=== PATIENT | female | born 1990 | race African-American/Black ===

== ENCOUNTER 2017-11-26 14:45 | Emergency (ER) | payer SELFPAY | END 2017-11-26 15:55 | disposition home or self-care (01) | LOC: ER 14:45 | DX: K02.9 Dental caries, unspecified (principal); R11.0 Nausea | CPT/HCPCS: 99283 ==

== ENCOUNTER 2018-10-05 11:46 | Emergency (ER) | payer SELFPAY ==
[~2018-10-05] VITALS: Ht 162.6 cm; Wt 96.6 kg
[~2018-10-05 11:46] MED LIST: ACET325T9 PO; AMOX875T PO; PROM25TA10 PO; TRAM50TA PO
[2018-10-05] MEDS ORDERED: HYOSCYAMINE 0.125 MG TAB.RAPDIS PO ONE (12:00)
[2018-10-05] MEDS ORDERED: PROCHLORPERAZINE 10 MG/2 ML VIAL. IV ONE (12:00)
[2018-10-05] MEDS ORDERED: IV NORMAL SALINE 1000ML BAG 1,000 ML IV SCH (12:00)
--- NOTE | 2018-10-05 12:08 | PHYS DOC ---
Past Medical History Past Medical History: No Pertinent History Additional Past Medical Histor: miscarriage 04/2013 Past Surgical History: No Surgical History Additional Information: 3 TO 4 CIGARETTES A DAY Alcohol Use: None Drug Use: None Adult General Chief Complaint Chief Complaint: NAUSEA/VOMITING/DIARRHA HPI HPI Patient is a 28 year old female who presents with upper abdominal pain that started at approximately 3:00 this morning. Multiple episodes of nausea, vomiting, and diarrhea. No blood in the stool or emesis. Patient has been able to tolerate any oral intake. Reports that the pain is "intense" but unable to define it better than that. Nothing seems to make the discomfort better or worse. No trauma. There is a sibling at home with similar symptoms.[] Review of Systems Review of Systems Constitutional: Denies fever or chills [] Eyes: Denies change in visual acuity, redness, or eye pain [] HENT: Denies nasal congestion or sore throat [] Respiratory: Denies cough or shortness of breath [] Cardiovascular: No chest pain or palpitations[] GI: See history of present illness[] : Denies dysuria or hematuria [] Musculoskeletal: Denies back pain or joint pain [] Integument: Denies rash or skin lesions [] Neurologic: Denies headache, focal weakness or sensory changes [] Endocrine: Denies polyuria or polydipsia [] All other systems were reviewed and found to be within normal limits, except as documented in this note. Current Medications Current Medications Current Medications Medications (Trade) Dose Ordered Sig/Nakul Start Time Stop Time Status Last Admin Dose Admin Hyoscyamine (Anaspaz) 0.125 mg ONCE ONCE 10/05/18 12:00 10/05/18 12:05 DC 10/05/18 12:15 0.125 MG Prochlorperazine Edisylate (Compazine) 5 mg 1X ONCE 10/05/18 12:00 10/05/18 12:05 DC 10/05/18 12:16 5 MG Sodium Chloride 1,000 ml @ 1,000 mls/hr Q1H 10/05/18 12:00 10/05/18 12:59 DC 10/05/18 12:15 1,000 MLS/HR Allergies Allergies Allergies Coded Allergies Type Severity Reaction Last Updated Verified No Known Drug Allergies 10/24/13 No Physical Exam Physical Exam Constitutional: Well developed, well nourished, no acute distress, non-toxic appearance. [] HENT: Normocephalic, atraumatic, bilateral external ears normal, oropharynx moist, no oral exudates, nose normal. [] Eyes: PERRLA, EOMI, conjunctiva normal, no discharge. [] Neck: Normal range of motion, no tenderness, supple, no stridor. [] Cardiovascular:Heart rate is tachycardic with a regular rhythm, no murmur [] Lungs & Thorax: Bilateral breath sounds clear to auscultation [] Abdomen: Bowel sounds normal, soft, epigastric tenderness, no rebound, no guarding, no rigidity, sits up without any difficulty, no masses, no pulsatile masses. [] Skin: Warm, dry, no erythema, no rash. [] Back: No tenderness, no CVA tenderness. [] Extremities: No tenderness, no cyanosis, no clubbing, ROM intact, no edema. [] Neurologic: Alert and oriented X 3, normal motor function, normal sensory function, no focal deficits noted. [] Psychologic: Affect normal, judgement normal, mood normal. [] Current Patient Data Vital Signs Vital Signs Date Time Temp Pulse Resp B/P (MAP) Pulse Ox O2 Delivery O2 Flow Rate FiO2 10/05/18 11:54 97.9 104 20 149/80 (103) 100 Room Air 97.9 Lab Values Laboratory Tests Test 10/05/18 11:56 10/05/18 11:58 10/05/18 12:00 10/05/18 13:00 Urine Collection Type Void Urine Color Yellow Urine Clarity Clear Urine pH 6.5 Urine Specific [place] >=1.030 Urine Protein 100 mg/dL (NEG-TRACE) Urine Glucose (UA) Negative mg/dL (NEG) Urine Ketones (Stick) Trace mg/dL (NEG) Urine Blood Negative (NEG) Urine Nitrite Negative (NEG) Urine Bilirubin Negative (NEG) Urine Urobilinogen Dipstick 0.2 mg/dL (0.2 mg/dL) Urine Leukocyte Esterase Negative (NEG) Urine RBC Occ /HPF (0-2) Urine WBC Occ /HPF (0-4) Urine Squamous Epithelial Cells Many /LPF Urine Bacteria Moderate /HPF (0-FEW) Urine Mucus Marked /LPF POC Urine HCG, Qualitative Hcg negative (Negative) White Blood Count 12.8 x10^3/uL (4.0-11.0) H Red Blood Count 5.41 x10^6/uL (3.50-5.40) H Hemoglobin 12.0 g/dL (12.0-15.5) Hematocrit 39.0 % (36.0-47.0) Mean Corpuscular Volume 72 fL (79-100) L Mean Corpuscular Hemoglobin 22 pg (25-35) L Mean Corpuscular Hemoglobin Concent 31 g/dL (31-37) Red Cell Distribution Width 18.4 % (11.5-14.5) H Platelet Count 234 x10^3/uL (140-400) Neutrophils (%) (Auto) 91 % (31-73) H Lymphocytes (%) (Auto) 5 % (24-48) L Monocytes (%) (Auto) 4 % (0-9) Eosinophils (%) (Auto) 1 % (0-3) Basophils (%) (Auto) 0 % (0-3) Neutrophils # (Auto) 11.6 x10^3uL (1.8-7.7) H Lymphocytes # (Auto) 0.6 x10^3/uL (1.0-4.8) L Monocytes # (Auto) 0.5 x10^3/uL (0.0-1.1) Eosinophils # (Auto) 0.1 x10^3/uL (0.0-0.7) Basophils # (Auto) 0.0 x10^3/uL (0.0-0.2) Segmented Neutrophils % 80 % (35-66) H Band Neutrophils % 7 % (0-9) Lymphocytes % 8 % (24-48) L Monocytes % 4 % (0-10) Metamyelocytes % 1 % (0-0) H Platelet Estimate Adequate (ADEQUATE) Large Platelets Occ Giant Platelets Occ Hypochromasia Slight Anisocytosis Slight Microcytosis Slight Ovalocytes Few Sodium Level 141 mmol/L (136-145) Potassium Level 4.0 mmol/L (3.5-5.1) Chloride Level 105 mmol/L (98-107) Carbon Dioxide Level 28 mmol/L (21-32) Anion Gap 8 (6-14) Blood Urea Nitrogen 10 mg/dL (7-20) Creatinine 0.8 mg/dL (0.6-1.0) Estimated GFR (Cockcroft-Gault) 104.1 BUN/Creatinine Ratio 13 (6-20) Glucose Level 115 mg/dL (70-99) H Calcium Level 8.8 mg/dL (8.5-10.1) Total Bilirubin 0.5 mg/dL (0.2-1.0) Aspartate Amino Transferase (AST) 22 U/L (15-37) Alanine Aminotransferase (ALT) 28 U/L (14-59) Alkaline Phosphatase 97 U/L (46-116) Total Protein 8.9 g/dL (6.4-8.2) H Albumin 4.4 g/dL (3.4-5.0) Albumin/Globulin Ratio 1.0 (1.0-1.7) Lipase 114 U/L (73-393) Influenza Type A Antigen Negative (NEGATIVE) Influenza Type B Antigen Negative (NEGATIVE) Laboratory Tests 10/05/18 12:00 Laboratory Tests 10/05/18 12:00 EKG EKG [] Radiology/Procedures Radiology/Procedures KUB History: UPPER ABDOMINAL PAIN, nausea and vomiting Comparison: May 17, 2009 Findings: Single supine AP view of the abdomen is submitted. There is nonspecific paucity of bowel gas. Exam is insufficient for the evaluation for free air. No unusual calcifications are identified. Impression: 1. There is nonspecific paucity of bowel gas.[] Course & Med Decision Making Course & Med Decision Making Pertinent Labs and Imaging studies reviewed. (See chart for details) ED course: Patient arrived, was placed in bed, and tolerated exam well. She obtained significant relief with IV fluids as well as antiemetics and antispasmodics. After the return of the laboratory and imaging studies, these were discussed with the patient who voiced understanding. All questions were answered. She was discharged in improved condition. Medical decision making: There is no evidence of influenza, no evidence of by mouth intolerance, no evidence of significant electrolyte abnormality, no urinary tract infection, patient is not no hyperemesis gravidarum[] Dragon Disclaimer Dragon Disclaimer This electronic medical record was generated, in whole or in part, using a voice recognition dictation system. Departure Departure Impression: Primary Impression: Nausea, vomiting, and diarrhea Disposition: HOME, SELF-CARE Condition: IMPROVED Referrals: NO PCP (PCP) Patient Instructions: Diet for Diarrhea, Adult, Nausea and Vomiting Additional Instructions: Drink plenty of fluids, frequent small sips. No fatty foods, no milk, and no pepper for the next 48 hours. For the next 48 hours eat a diet rich in carbohydrates with foods such as bananas, rice, applesauce, and toast. Follow- up with your regular doctor in 2 days. If you do not have regular doctor list of local clinics will be provided for you. Return to the ER if blood in the stool or emesis, unable to tolerate liquids, or any other concerns. Scripts Metoclopramide Hcl (REGLAN) 10 Mg Tablet 10 MG PO QIDACHS, #30 TAB 0 Refills Prov: DONTE FENG DO 10/05/18 Hyoscyamine Sulfate (LEVSIN) 0.125 Mg Tablet 0.125 MG PO QID, #30 TAB Prov: DONTE FENG DO 10/05/18 DONTE FENG DO Oct 05, 2018 12:08
[2018-10-05 12:12] LABS: BILIRUBIN,URINE NEGATIVE (NEG); CLARITY,URINE CLEAR; COLOR,URINE YELLOW; NITRITE,URINE NEGATIVE (NEG); PH,URINE 6.5; PROTEIN,URINE 100 mg/dL (NEG-TRACE); UROBILINOGEN,URINE 0.2 mg/dL (0.2 mg/dL)
[2018-10-05 12:15] LABS: BASO % 0 % (0-3); EOS # 0.1 x10^3/uL (0.0-0.7); EOS % 1 % (0-3); LYMPH # 0.6 x10^3/uL (1.0-4.8); LYMPH % 5 % (24-48); MEAN CORPUSCULAR HEMOGLOBIN 22 pg (25-35); MEAN CORPUSCULAR HGB CONC 31 g/dL (31-37); MEAN CORPUSCULAR VOLUME 72 fL (79-100); MONO # 0.5 x10^3/uL (0.0-1.1); MONO % 4 % (0-9); NEUT # 11.6 x10^3uL (1.8-7.7); NEUT % 91 % (31-73); PLATELET COUNT 234 x10^3/uL (140-400); RED BLOOD COUNT 5.41 x10^6/uL (3.50-5.40); RED CELL DISTRIBUTION WIDTH 18.4 % (11.5-14.5); WHITE BLOOD COUNT 12.8 x10^3/uL (4.0-11.0)
[2018-10-05 12:16] LABS: SQUAMOUS EPITHELIAL CELL,UR MANY /LPF
[2018-10-05 12:17] LABS: BACTERIA,URINE MODERATE /HPF (0-FEW); RBC,URINE OCC /HPF (0-2); WBC,URINE OCC /HPF (0-4)
[2018-10-05 12:25] LABS: CALCIUM 8.8 mg/dL (8.5-10.1); CREATININE 0.8 mg/dL (0.6-1.0); GFR 104.1
[2018-10-05 12:38] LABS: ALBUMIN 4.4 g/dL (3.4-5.0); TOTAL BILIRUBIN 0.5 mg/dL (0.2-1.0); TOTAL PROTEIN 8.9 g/dL (6.4-8.2)
--- NOTE | 2018-10-05 13:04 | RAD ---
KUB History: UPPER ABDOMINAL PAIN, nausea and vomiting Comparison: May 17, 2009 Findings: Single supine AP view of the abdomen is submitted. There is nonspecific paucity of bowel gas. Exam is insufficient for the evaluation for free air. No unusual calcifications are identified. Impression: 1. There is nonspecific paucity of bowel gas. Electronically signed by: Kevon Chaudhary MD (10/05/2018 1:00 PM) [facility]
[2018-10-05 13:15] LABS: % BANDS 7 % (0-9); % LYMPHS 8 % (24-48); % METAS 1 % (0-0); % MONOS 4 % (0-10); % SEGS 80 % (35-66); PLT ESTIMATE ADEQUATE (ADEQUATE)
[2018-10-05 13:16] LABS: ANISOCYTOSIS SLIGHT; HYPOCHROMIA SLIGHT; MICROCYTOSIS SLIGHT; OVALOCYTES FEW
[2018-10-05 13:26] LABS: INFLUENZA A PATIENT NEGATIVE (NEGATIVE); INFLUENZA B PATIENT NEGATIVE (NEGATIVE)
[2018-10-05] MEDS ORDERED: METO10TA81 PO (13:36)
[2018-10-05] MEDS ORDERED: HYOS0.1264 PO (13:36)
[2018-10-05 13:41] VITALS: BP 115/60
== END 2018-10-05 13:45 | disposition home or self-care (01) ==
LOC: ER 11:46
DX: R11.2 Nausea with vomiting, unspecified (principal); R19.7 Diarrhea, unspecified; R00.0 Tachycardia, unspecified; R10.13 Epigastric pain; F17.210 Nicotine dependence, cigarettes, uncomplicated
CPT/HCPCS: 36415; 74018; 80053; 81001; 81025; 83690; 85007; 85025; 87086; 87804; 96361; 96374; 99284; J0780; J7030

== ENCOUNTER 2018-10-23 10:41 | Emergency (ER) | payer SELFPAY ==
[~2018-10-23] VITALS: Ht 162.6 cm; Wt 104.3 kg
[~2018-10-23 10:41] MED LIST changes: +HYOS0.1264 PO; +METO10TA81 PO
[2018-10-23 11:32] LABS: BILIRUBIN,URINE NEGATIVE (NEG); CLARITY,URINE CLEAR; COLOR,URINE YELLOW; NITRITE,URINE NEGATIVE (NEG); PH,URINE 6.5; PROTEIN,URINE 30 mg/dL (NEG-TRACE); UROBILINOGEN,URINE 0.2 mg/dL (0.2 mg/dL)
[2018-10-23] MEDS ORDERED: fentaNYL PF VIAL 100 MCG/2 ML VIAL IV ONE (11:45)
[2018-10-23] MEDS ORDERED: FAMOTIDINE 20 MG/2 ML VIAL IVP ONE (11:45)
[2018-10-23] MEDS ORDERED: IV NORMAL SALINE 1000ML BAG 1,000 ML IV ONE (11:45)
[2018-10-23] MEDS ORDERED: ONDANSETRON PF 4 MG/2 ML VIAL. IV ONE (11:45)
[2018-10-23 11:49] LABS: SQUAMOUS EPITHELIAL CELL,UR MANY /LPF
[2018-10-23 11:50] LABS: BACTERIA,URINE MANY /HPF (0-FEW); RBC,URINE 0 /HPF (0-2)
[2018-10-23] MEDS ORDERED: IOHEXOL 300 MG/ML 100ML VIAL. IV ONE (12:00)
[2018-10-23] MEDS ORDERED: CONTRAST GIVEN. MC PRN (12:00)
[2018-10-23 12:19] LABS: CALCIUM 8.8 mg/dL (8.5-10.1); CREATININE 0.8 mg/dL (0.6-1.0); GFR 104.1; POTASSIUM 3.9 mmol/L (3.5-5.1)
[2018-10-23 12:22] LABS: BASO # 0.1 x10^3/uL (0.0-0.2); BASO % 1 % (0-3); EOS # 0.1 x10^3/uL (0.0-0.7); EOS % 1 % (0-3); HEMATOCRIT 35.1 % (36.0-47.0); HEMOGLOBIN 10.7 g/dL (12.0-15.5); LYMPH # 2.2 x10^3/uL (1.0-4.8); LYMPH % 27 % (24-48); MEAN CORPUSCULAR HEMOGLOBIN 22 pg (25-35); MEAN CORPUSCULAR HGB CONC 31 g/dL (31-37); MEAN CORPUSCULAR VOLUME 71 fL (79-100); MONO # 0.6 x10^3/uL (0.0-1.1); MONO % 8 % (0-9); NEUT # 5.2 x10^3uL (1.8-7.7); NEUT % 63 % (31-73); PLATELET COUNT 270 x10^3/uL (140-400); RED BLOOD COUNT 4.93 x10^6/uL (3.50-5.40); RED CELL DISTRIBUTION WIDTH 18.3 % (11.5-14.5); WHITE BLOOD COUNT 8.2 x10^3/uL (4.0-11.0)
[2018-10-23 12:25] LABS: ALBUMIN 4.1 g/dL (3.4-5.0); TOTAL BILIRUBIN 0.2 mg/dL (0.2-1.0); TOTAL PROTEIN 8.1 g/dL (6.4-8.2)
--- NOTE | 2018-10-23 12:40 | RAD ---
Examination: CT ABD PELV W/ IV CONTRST ONLY History: UPPER/ PELVIC ABD PAIN OMNI 300 75M Comparison/Correlation: 03/26/2012 CT abdomen and pelvis with contrast Findings: Axial images of the abdomen and pelvis were obtained following IV contrast. Sagittal and coronal reformatted images were provided. Visualized lung bases are clear. Liver, spleen, pancreas, adrenal glands, and kidneys are normal. Gallbladder fossa is unremarkable. Appendix is normal. Moderate quantity of stool in the colon is present. No bowel obstruction. No extraluminal gas. No enlarged abdominal or pelvic lymph nodes. No ascites or pelvic free fluid. Uterus is unremarkable. Bony structures are unremarkable. Impression: No acute process. Unremarkable exam. PQRS Compliance Statement: One or more of the following individualized dose reduction techniques were utilized for this examination: 1. Automated exposure control 2. Adjustment of the mA and/or kV according to patient size 3. Use of iterative reconstruction technique Electronically signed by: Gary Hester MD (10/23/2018 12:37 PM) [facility]
[2018-10-23 12:59] LABS: BARBITURATES NEG (NEG); BENZODIAZEPINES NEG (NEG); CANNABINOIDS NEG (NEG); COCAINE NEG (NEG); METHADONE NEG (NEG); OPIATES NEG (NEG); PHENCYCLIDINE NEG (NEG)
[2018-10-23 13:02] LABS: AMPHETAMINE/METHAMPHETAMINE NEG (NEG)
[2018-10-23 13:20] LABS: ANISOCYTOSIS SLIGHT; HYPOCHROMIA MOD; MICROCYTOSIS PRESENT; PLT ESTIMATE ADEQUATE (ADEQUATE)
[2018-10-23 13:43] VITALS: BP 149/76
--- NOTE | 2018-10-23 14:00 | PHYS DOC ---
Past Medical History Past Medical History: No Pertinent History Additional Past Medical Histor: miscarriage 04/2013 Past Surgical History: No Surgical History Alcohol Use: None Drug Use: None Adult General Chief Complaint Chief Complaint: ABDOMINAL PAIN HPI HPI Patient is a 28 year old female with no significant medical history who presents to the ED today complaining of abdominal pain. Patient rates the pain at 8 out of 10. Describes it as sharp and states it radiates from her epigastric region into her right upper quadrant into her vagina as well as her low back patient states the pain is intermittent for the last 3 days. Denies any nausea vomiting. Denies any diarrhea. Denies anything specifically exacerbating or relieving the pain. Patient denies any concerns for STDs, denies any chance she is , denies any unusual vaginal discharge. She states her last menstrual cycle was August 23, 2018, she states her cycles are irregular and there is no chance she is because she has only been once before and had a miscarriage has not been since then she' s years ago. Review of Systems Review of Systems Constitutional: Denies fever or chills [] Eyes: Denies change in visual acuity, redness, or eye pain [] HENT: Denies nasal congestion or sore throat [] Respiratory: Denies cough or shortness of breath [] Cardiovascular: No additional information not addressed in HPI [] GI: Reports epigastric abdominal pain radiating into the vagina as well as low back, denies nausea, vomiting, bloody stools or diarrhea [] : Denies dysuria or hematuria [] Musculoskeletal: Denies back pain or joint pain [] Integument: Denies rash or skin lesions [] Neurologic: Denies headache, focal weakness or sensory changes [] Endocrine: Denies polyuria or polydipsia [] All other systems were reviewed and found to be within normal limits, except as documented in this note. Current Medications Current Medications Current Medications Medications (Trade) Dose Ordered Sig/Nakul Start Time Stop Time Status Last Admin Dose Admin Famotidine (Pepcid Vial) 20 mg 1X ONCE 10/23/18 11:45 10/23/18 11:49 DC 10/23/18 12:03 20 MG Fentanyl Citrate (Fentanyl 2ml Vial) 50 mcg 1X ONCE 10/23/18 11:45 10/23/18 11:49 DC 10/23/18 12:07 50 MCG Info (CONTRAST GIVEN -- Rx MONITORING) 1 each PRN DAILY PRN 10/23/18 12:00 10/25/18 11:59 Iohexol (Omnipaque 300 Mg/ml) 75 ml 1X ONCE 10/23/18 12:00 10/23/18 12:01 DC 10/23/18 12:00 75 ML Ondansetron HCl (Zofran) 4 mg 1X ONCE 10/23/18 11:45 10/23/18 11:49 DC 10/23/18 12:02 4 MG Sodium Chloride 1,000 ml @ 1,000 mls/hr 1X ONCE 10/23/18 11:45 10/23/18 12:44 DC 10/23/18 12:06 1,000 MLS/HR Allergies Allergies Allergies Coded Allergies Type Severity Reaction Last Updated Verified No Known Drug Allergies 10/24/13 No Physical Exam Physical Exam Constitutional: Well developed, well nourished, no acute distress, non-toxic appearance. [] HENT: Normocephalic, atraumatic, bilateral external ears normal, oropharynx moist, no oral exudates, nose normal. [] Eyes: PERRLA, EOMI, conjunctiva normal, no discharge. [] Neck: Normal range of motion, no tenderness, supple, no stridor. [] Cardiovascular:Heart rate regular rhythm, no murmur [] Lungs & Thorax: Bilateral breath sounds clear to auscultation [] Abdomen: Bowel sounds normal, soft, no tenderness, no masses, no pulsatile masses. [] Pelvic exam External pelvic is normal, cervix is visualized, closed, no CMT, no adnexal tenderness.Trace amount of white discharge in the vaginal vault. Skin: Warm, dry, no erythema, no rash. [] Back: No tenderness, no CVA tenderness. [] Extremities: No tenderness, no cyanosis, no clubbing, ROM intact, no edema. [] Neurologic: Alert and oriented X 3, normal motor function, normal sensory function, no focal deficits noted. [] Psychologic: Affect normal, judgement normal, mood normal. [] Current Patient Data Vital Signs Vital Signs Date Time Temp Pulse Resp B/P (MAP) Pulse Ox O2 Delivery O2 Flow Rate FiO2 10/23/18 12:13 98 125/78 (94) 99 Room Air 10/23/18 12:07 14 10/23/18 11:25 98.1 98.1 Lab Values Laboratory Tests Test 10/23/18 11:19 10/23/18 11:22 10/23/18 11:55 Urine Collection Type Unknown Urine Color Yellow Urine Clarity Clear Urine pH 6.5 Urine Specific [place] 1.025 Urine Protein 30 mg/dL (NEG-TRACE) Urine Glucose (UA) Negative mg/dL (NEG) Urine Ketones (Stick) Negative mg/dL (NEG) Urine Blood Negative (NEG) Urine Nitrite Negative (NEG) Urine Bilirubin Negative (NEG) Urine Urobilinogen Dipstick 0.2 mg/dL (0.2 mg/dL) Urine Leukocyte Esterase Negative (NEG) Urine RBC 0 /HPF (0-2) Urine WBC 1-4 /HPF (0-4) Urine Squamous Epithelial Cells Many /LPF Urine Bacteria Many /HPF (0-FEW) Urine Mucus Slight /LPF Urine Opiates Screen Neg (NEG) Urine Methadone Screen Neg (NEG) Urine Barbiturates Neg (NEG) Urine Phencyclidine Screen Neg (NEG) Urine Amphetamine/Methamphetamine Neg (NEG) Urine Benzodiazepines Screen Neg (NEG) Urine Cocaine Screen Neg (NEG) Urine Cannabinoids Screen Neg (NEG) Urine Ethyl Alcohol Neg (NEG) POC Urine HCG, Qualitative Hcg negative (Negative) White Blood Count 8.2 x10^3/uL (4.0-11.0) Red Blood Count 4.93 x10^6/uL (3.50-5.40) Hemoglobin 10.7 g/dL (12.0-15.5) L Hematocrit 35.1 % (36.0-47.0) L Mean Corpuscular Volume 71 fL (79-100) L Mean Corpuscular Hemoglobin 22 pg (25-35) L Mean Corpuscular Hemoglobin Concent 31 g/dL (31-37) Red Cell Distribution Width 18.3 % (11.5-14.5) H Platelet Count 270 x10^3/uL (140-400) Neutrophils (%) (Auto) 63 % (31-73) Lymphocytes (%) (Auto) 27 % (24-48) Monocytes (%) (Auto) 8 % (0-9) Eosinophils (%) (Auto) 1 % (0-3) Basophils (%) (Auto) 1 % (0-3) Neutrophils # (Auto) 5.2 x10^3uL (1.8-7.7) Lymphocytes # (Auto) 2.2 x10^3/uL (1.0-4.8) Monocytes # (Auto) 0.6 x10^3/uL (0.0-1.1) Eosinophils # (Auto) 0.1 x10^3/uL (0.0-0.7) Basophils # (Auto) 0.1 x10^3/uL (0.0-0.2) Platelet Estimate Adequate (ADEQUATE) Large Platelets Present Hypochromasia Mod Anisocytosis Slight Microcytosis Present Sodium Level 143 mmol/L (136-145) Potassium Level 3.9 mmol/L (3.5-5.1) Chloride Level 105 mmol/L (98-107) Carbon Dioxide Level 27 mmol/L (21-32) Anion Gap 11 (6-14) Blood Urea Nitrogen 7 mg/dL (7-20) Creatinine 0.8 mg/dL (0.6-1.0) Estimated GFR (Cockcroft-Gault) 104.1 BUN/Creatinine Ratio 9 (6-20) Glucose Level 90 mg/dL (70-99) Calcium Level 8.8 mg/dL (8.5-10.1) Total Bilirubin 0.2 mg/dL (0.2-1.0) Aspartate Amino Transferase (AST) 66 U/L (15-37) H Alanine Aminotransferase (ALT) 68 U/L (14-59) H Alkaline Phosphatase 92 U/L (46-116) Total Protein 8.1 g/dL (6.4-8.2) Albumin 4.1 g/dL (3.4-5.0) Albumin/Globulin Ratio 1.0 (1.0-1.7) Lipase 107 U/L (73-393) Ethyl Alcohol Level < 10 mg/dL (0-10) Laboratory Tests 10/23/18 11:55 Laboratory Tests 10/23/18 11:55 EKG EKG [] Radiology/Procedures Radiology/Procedures [] Course & Med Decision Making Course & Med Decision Making Pertinent Labs and Imaging studies reviewed. (See chart for details) This is a 28-year-old female patient presenting to the ED today complaining of epigastric abdominal pain radiating to her low back as well as a vagina. No concerns for STDs, no unusual vaginal discharge, negative urine hCG, urine analysis is negative for infection. CBC with normal WBC lipase with no acute, AST [address] of the abdomen and pelvic is negative for any acute findings. Patient is in no distress. She was given IV fluids Pepcid and Zofran, feeling better. Discharged to home. Follow-up with her own PCP in 1-2 weeks. Dragon Disclaimer Dragon Disclaimer This electronic medical record was generated, in whole or in part, using a voice recognition dictation system. Departure Departure Impression: Primary Impression: Abdominal pain Disposition: HOME, SELF-CARE Condition: STABLE Referrals: NO PCP (PCP) Follow up with your doctor in 1-2 weeks Patient Instructions: Abdominal Pain Additional Instructions: You were elevated in the ER for abdominal pain. Please take [id number] medications as needed. Follow-up with your own doctor in 1-2 weeks. Problem Qualifiers Primary Impression: Abdominal pain Abdominal location: epigastric Qualified Codes: R10.13 - Epigastric pain TYREL EPPS APRN Oct 23, 2018 14:00
== END 2018-10-23 14:05 | disposition home or self-care (01) ==
LOC: ER 10:41
DX: R10.13 Epigastric pain (principal); M54.5 Low back pain
CPT/HCPCS: 36415; 74177; 80053; 80307; 81001; 81025; 83690; 85025; 87086; 96374; 96375; 99284; G0480; J2405; J3010; J3490; J7030; Q9967

== ENCOUNTER 2019-03-04 19:57 | Emergency (ER) | payer SELFPAY ==
[~2019-03-04] VITALS: Ht 165.1 cm; Wt 95.3 kg
[2019-03-04 20:22] VITALS: BP 140/87
[2019-03-04 21:03] LABS: BILIRUBIN,URINE NEGATIVE (NEG); CLARITY,URINE CLEAR; COLOR,URINE YELLOW; NITRITE,URINE NEGATIVE (NEG); PH,URINE 5.5; PROTEIN,URINE 30 mg/dL (NEG-TRACE); UROBILINOGEN,URINE 0.2 mg/dL (0.2 mg/dL)
[2019-03-04 21:09] LABS: BACTERIA,URINE MODERATE /HPF (0-FEW); SQUAMOUS EPITHELIAL CELL,UR OCC /LPF; WBC,URINE 20-40 /HPF (0-4)
[2019-03-04] MEDS ORDERED: CIPR500T PO (21:36)
[2019-03-04] MEDS ORDERED: METR-34 PO (21:36)
--- NOTE | 2019-03-04 21:48 | PHYS DOC ---
Past Medical History Past Medical History: No Pertinent History Additional Past Medical Histor: miscarriage 04/2013 Past Surgical History: No Surgical History Alcohol Use: Occasionally Drug Use: None Adult General Chief Complaint Chief Complaint: PELVIC PAIN HPI HPI Patient is a 28 year old female who presents with chief complaint of vaginal discharge some discomfort in that area notices some blood and pain with urination times about a week or more sharp nonradiating mild to moderateAll other ROS neg unless otherwise noted in HPI Review of Systems Review of Systems see above Current Medications Current Medications Current Medications Medications (Trade) Dose Ordered Sig/Nakul Start Time Stop Time Status Last Admin Dose Admin Azithromycin (Zithromax) 1,000 mg 1X ONCE 03/04/19 22:00 03/04/19 22:01 Ceftriaxone Sodium (Rocephin Im) 250 mg 1X ONCE 03/04/19 22:00 03/04/19 22:01 Allergies Allergies Allergies Coded Allergies Type Severity Reaction Last Updated Verified No Known Drug Allergies 10/24/13 No Physical Exam Physical Exam see above Constitutional: Well developed, well nourished, no acute distress, non-toxic appearance. [] HENT: Normocephalic, atraumatic, bilateral external ears normal, oropharynx moist, no oral exudates, nose normal. [] Eyes: PERRLA, EOMI, conjunctiva normal, no discharge. [] Neck: Normal range of motion, no tenderness, supple, no stridor. [] Cardiovascular:Heart rate regular rhythm, no murmur [] Lungs & Thorax: Bilateral breath sounds clear to auscultation [] Abdomen: Bowel sounds normal, soft, no tenderness, no masses, no pulsatile masses. [] Pelvic exam shows under supervision of Lynsey nurse small amount of vaginal bleeding and vaginal discharge no significant CMT os is slightly open trace bleeding noted Extremities: No tenderness, no cyanosis, no clubbing, ROM intact, no edema. [] Neurologic: Alert and oriented X 3, normal motor function, normal sensory function, no focal deficits noted. [] Psychologic: Affect normal, judgement normal, mood normal. [] Current Patient Data Vital Signs Vital Signs Date Time Temp Pulse Resp B/P (MAP) Pulse Ox O2 Delivery O2 Flow Rate FiO2 03/04/19 20:20 98.5 81 20 140/87 (104) 96 Room Air 98.5 Lab Values Laboratory Tests Test 03/04/19 20:05 03/04/19 20:06 Urine Color Yellow Urine Clarity Clear Urine pH 5.5 Urine Specific [place] 1.025 Urine Protein 30 mg/dL (NEG-TRACE) Urine Glucose (UA) Negative mg/dL (NEG) Urine Ketones (Stick) Negative mg/dL (NEG) Urine Blood Small (NEG) Urine Nitrite Negative (NEG) Urine Bilirubin Negative (NEG) Urine Urobilinogen Dipstick 0.2 mg/dL (0.2 mg/dL) Urine Leukocyte Esterase Moderate (NEG) Urine RBC 3-5 /HPF (0-2) Urine WBC 20-40 /HPF (0-4) Urine Squamous Epithelial Cells Occ /LPF Urine Bacteria Moderate /HPF (0-FEW) Urine Mucus Mod /LPF POC Urine HCG, Qualitative Hcg negative (Negative) Microbiology 03/04/19 Wet Prep - Final, Complete EKG EKG [] Radiology/Procedures Radiology/Procedures [] Course & Med Decision Making Course & Med Decision Making Pertinent Labs and Imaging studies reviewed. (See chart for details) []Patient has evidence of Trichomonas as well as a urinary tract infection treated presumptively for STI with ceftriaxone and azithromycin and prescription for antibiotics for UTI and Trichomonas safe sex precautions provided Dragon Disclaimer Dragon Disclaimer This electronic medical record was generated, in whole or in part, using a voice recognition dictation system. Departure Departure Impression: Primary Impression: Trichomonas infection Additional Impression: Urinary tract infection Disposition: 01 HOME, SELF-CARE Condition: STABLE Patient Instructions: Trichomoniasis-Brief, Urinary Tract Infection, Gdof-bp-Frev Scripts Ciprofloxacin Hcl (CIPROFLOXACIN HCL) 500 Mg Tablet 1 TAB PO BID, #14 TAB Prov: MARTÍNEZ OCHOA MD 03/04/19 Metronidazole (METRONIDAZOLE) 500 Mg Tablet 1 TAB PO BID, #14 TAB Prov: MARTÍNEZ OCHOA MD 03/04/19 Problem Qualifiers MARTÍNEZ OCHOA MD Mar 04, 2019 21:48
[2019-03-04] MEDS ORDERED: AZITHROMYCIN 250 MG TABLET. PO ONE (22:00)
[2019-03-04] MEDS ORDERED: cefTRIAXone IM 250 MG VIAL IM ONE (22:00)
[2019-03-05] MEDS ORDERED: ONDA4TAB12 PO (01:00)
[2019-03-06 18:10] LABS: GC PROBE Negative (Negative)
== END 2019-03-04 22:03 | disposition home or self-care (01) ==
LOC: ER 19:57
DX: N39.0 Urinary tract infection, site not specified (principal); A59.9 Trichomoniasis, unspecified
CPT/HCPCS: 81001; 81025; 87086; 87491; 87591; 96372; 99284; J0696; Q0111; Q0144

== ENCOUNTER 2019-03-05 00:40 | Emergency (ER) | payer SELFPAY ==
[~2019-03-05] VITALS: Ht 165.1 cm; Wt 95.3 kg
[~2019-03-05 00:40] MED LIST changes: +CIPR500T PO; +METR-34 PO
[2019-03-05 00:57] VITALS: BP 132/75
[2019-03-05] MEDS ORDERED: ONDA4TAB12 PO (01:00)
[2019-03-05] MEDS ORDERED: ONDANSETRON PF 4 MG/2 ML VIAL. IM ONE (01:30)
--- NOTE | 2019-03-05 01:31 | PHYS DOC ---
Past Medical History Past Medical History: No Pertinent History Additional Past Medical Histor: miscarriage 04/2013, TRICHOMONIASIS INFECTION Past Surgical History: No Surgical History Alcohol Use: Occasionally Drug Use: None Adult General Chief Complaint Chief Complaint: NAUSEA/VOMITING/DIARRHA HPI HPI Patient is a 28 year old female presenting with nausea and vomiting �4 episodes she was just here approximately 3 hours ago she received azithromycin by mouth 1 g began to feel nauseous after that she went home she vomited a few times she picked up her antibiotics but she has not taken them yet no pain really just in her buttock or the ceftriaxone was put in Current Medications Current Medications Current Medications Medications (Trade) Dose Ordered Sig/Nakul Start Time Stop Time Status Last Admin Dose Admin Ondansetron HCl (Zofran) 4 mg 1X ONCE 03/05/19 01:30 03/05/19 01:31 03/05/19 01:21 4 MG Allergies Allergies Allergies Coded Allergies Type Severity Reaction Last Updated Verified No Known Drug Allergies 10/24/13 No Physical Exam Physical Exam Constitutional: Well developed, well nourished, no acute distress, non-toxic appearance. [] HENT: Normocephalic, atraumatic, bilateral external ears normal, oropharynx moist, no oral exudates, nose normal. [] Eyes: PERRLA, EOMI, conjunctiva normal, no discharge. [] Neck: Normal range of motion, no tenderness, supple, no stridor. [] Pulmonary: Normal respiratory effort no increased work of breathing no obvious chest wall trauma Abdomen: Bowel sounds normal, soft, no tenderness, no masses, no pulsatile masses. [] Skin: Warm, dry, no erythema, no rash. [] Neurologic: Alert and oriented X 3, normal motor function, normal sensory function, no focal deficits noted. [] Psychologic: Affect normal, judgement normal, mood normal. [] Current Patient Data Vital Signs Vital Signs Date Time Temp Pulse Resp B/P (MAP) Pulse Ox O2 Delivery O2 Flow Rate FiO2 03/05/19 00:57 98.1 96 20 132/75 (94) 96 Room Air 98.1 EKG EKG [] Radiology/Procedures Radiology/Procedures [] Course & Med Decision Making Course & Med Decision Making Pertinent Labs and Imaging studies reviewed. (See chart for details) []Very likely medication effect just recently had azithromycin patient was given Zofran in the emergency room with a prescription for same and instructions on how to time this medication relative to the antibiotics that she needs to take for her previous diagnosis of Trichomonas and UTI. Well-appearing vitals are reassuring reassurance provided home function is labs at this time by mouth challenge prior to discharge Carolyn Disclaimer Carolyn Disclaimer This electronic medical record was generated, in whole or in part, using a voice recognition dictation system. Departure Departure Impression: Primary Impression: Nausea & vomiting Disposition: 01 HOME, SELF-CARE Condition: STABLE Patient Instructions: Nausea and Vomiting, [id number] Scripts Ondansetron (ONDANSETRON ODT) 4 Mg Tab.rapdis 1 TAB PO PRN Q6-8HRS, #10 TAB Prov: MARTÍNEZ OCHOA MD 03/05/19 MARTÍNEZ OCHOA MD Mar 05, 2019 01:31
== END 2019-03-05 01:31 | disposition home or self-care (01) ==
LOC: ER 00:40
DX: R11.2 Nausea with vomiting, unspecified (principal)
CPT/HCPCS: 96372; 99283; J2405